=== PATIENT | female | born 1990 | race Caucasian/White ===

== ENCOUNTER 2019-01-22 17:13 | Inpatient (IN) ==
[2019-01-22] MEDS ORDERED: ONDANSETRON 4 MG/2 ML VIAL IV PRN (17:49)
[2019-01-22] MEDS ORDERED: BUTORPHANOL 1 MG/ML VIAL IV PRN (17:49)
[2019-01-22] MEDS ORDERED: BUTORPHANOL 2 MG/ML VIAL IV PRN (17:49)
[2019-01-22 18:13] LABS: Basophils % 0.3 % (0.0-0.8); Eosinophils # 0.1 10*3/uL (0.0-0.87); Eosinophils % 0.7 % (0.00-10.9); Hematocrit 29.9 VOL% (35.7-47.0); Hemoglobin 8.8 GM/DL (12.0-16.0); Immature Granulocytes Absolute 0.12 #; Lymphocytes # 3.4 10*3/uL (1.4-4.0); Lymphocytes % 26.7 % (21.3-54.2); Mean Corpuscular HGB Conc 29.4 GM/DL (32-36); Mean Corpuscular Volume 78.9 FL (87-102); Mean Platelet Volume 9.8 FL (9.6-12.0); Monocytes % 6.5 % (1.7-12.7); NRBC # 0.07 10*3/uL; Neutrophils % 64.8 % (38.7-73.9); Platelet Count 270 T/CUMM (130-400); Red Blood Count 3.79 MC/CUMM (3.8-5.5); Red Cell Distribution Width 15.5 % (9.3-17.3); White Blood Count 12.6 T/CUMM (4-12)
[2019-01-22] MEDS: LACTATED RINGERS 1,000 ML IV SCH (18:23)
[2019-01-22 18:30] LABS: Albumin 2.5 G/DL (3.4-5.0); Bilirubin,Total 0.5 MG/DL (0.2-1.0); Calcium 8.4 MG/DL (8.5-10.1); Osmolality,Calculated 272.7 MOS/KG (273-304); Total Protein 6.8 G/DL (6.4-8.3); Uric Acid 4.2 MG/DL (2.6-6.0)
[2019-01-22] MEDS ORDERED: PROMETHAZINE 25 MG/1 ML VIAL IM ONE (19:16)
[2019-01-22] MEDS ORDERED: NALOXONE 0.4 MG/ML VIAL IV PRN (19:16)
[2019-01-22] MEDS ORDERED: ONDANSETRON 4 MG/2 ML VIAL IV ONE (19:16)
[2019-01-22] MEDS ORDERED: ePHEDrine 50 MG/ML AMP IV PRN (19:16)
[2019-01-22] MEDS ORDERED: hydrOXYzine HCL 25 MG/1 ML VIAL IM PRN (19:16)
[2019-01-22] MEDS ORDERED: diphenhydrAMINE 50 MG/1 ML VIAL IV PRN ×2 (19:16)
[2019-01-22] MEDS ORDERED: FAMOTIDINE 20 MG/2 ML VIAL IV ONE (19:21)
[2019-01-22] MEDS ORDERED: CITRIC ACID/SODIUM CITRATE 30 ML UDCUP PO ONE (19:21)
[2019-01-22] MEDS ORDERED: OXYTOCIN/LR 20 UNIT/1,000 ML BAG IV ONE (19:29)
[2019-01-22] MEDS ORDERED: TRANEXAMIC ACID 1,000 MG/10 ML VIAL ONE (19:29)
[2019-01-22] MEDS ORDERED: miSOPROStoL 200 MCG TABLET ONE (19:29)
[2019-01-22] MEDS ORDERED: CARBOPROST TROMETHAMINE 250 MCG/ML AMP IM ONE (19:30)
[2019-01-22] MEDS ORDERED: METHYLERGONOVINE 0.2 MG/1 ML AMP ONE (19:30)
[2019-01-22] MEDS ORDERED: LACTATED RINGERS 1,000 ML IV SCH (19:30)
[2019-01-22] MEDS ORDERED: fentaNYL 2 MCG/ROPIV 0.2% EPID 100 ML EPIDURAL SCH (19:30)
[2019-01-23] MEDS: LACTATED RINGERS 1,000 ML IV SCH ×2 (01:27→11:18)
[2019-01-23] MEDS ORDERED: OXYTOCIN/LR 20 UNIT/1,000 ML BAG IV SCH (04:30)
[2019-01-23] MEDS: MEPERIDINE 50 MG/1 ML VIAL IV PRN ×2 (04:39→08:44)
[2019-01-23 04:51] LABS: Apearance,Urine Slightly Hazy (Clear); Bilirubin,Urine Negative (Negative); Blood, Urine Negative (Negative); Glucose,Urine (UA) Negative (Negative); Ketones,Urine 80 mg/dL (Negative); Mucus,Urine Many /LPF (Occasional); Nitrite,Urine Negative (Negative); Protein,Urine 30 MG/DL; RBC,Urine 1 /HPF (0-4); Squamous Epithelial Cell,Urine Occasional /HPF (0-10); Urine Color Dark yellow (Yellow); Urine Specific Gravity 1.024 (1.001-1.035); WBC,Urine 4 /HPF (0-6)
[2019-01-23] MEDS ORDERED: miSOPROStoL 200 MCG TABLET ONE (09:40)
[2019-01-23] MEDS ORDERED: OXYTOCIN/LR 20 UNIT/1,000 ML BAG IV ONE ×2 (09:40→10:21)
[2019-01-23] MEDS ORDERED: TRANEXAMIC ACID 1,000 MG/10 ML VIAL ONE (09:40)
[2019-01-23] MEDS ORDERED: CARBOPROST TROMETHAMINE 250 MCG/ML AMP IM ONE (09:41)
[2019-01-23] MEDS ORDERED: LIDOCAINE 1% 50 ML VIAL ONE (09:41)
[2019-01-23] MEDS ORDERED: METHYLERGONOVINE 0.2 MG/1 ML AMP ONE (09:41)
[2019-01-23] MEDS ORDERED: DIPH/TET/ACEL PERT BOOSTER VACCINE 0.5 ML VIAL IM ONE (10:21)
[2019-01-23] MEDS ORDERED: HYDROCORTISONE 2.5% RECTAL CREAM 30 GM TUBE TOP PRN (10:21)
[2019-01-23] MEDS ORDERED: BISACODYL 10 MG SUPP RECTAL PRN (10:21)
[2019-01-23] MEDS ORDERED: RHO(D) IMMUNE GLOBULIN 300 MCG SYRINGE IM ONE (10:21)
[2019-01-23] MEDS ORDERED: LANOLIN 50% CREAM 0.3 OZ TUBE TOP PRN (10:21)
[2019-01-23] MEDS ORDERED: ONDANSETRON 4 MG/2 ML VIAL IV PRN (10:21)
[2019-01-23] MEDS ORDERED: ACETAMINOPHEN 325 MG TABLET PO PRN (10:21)
[2019-01-23] MEDS ORDERED: oxyCODONE/ACETAMINOPHEN 5-325 MG TABLET PO PRN (10:21)
[2019-01-23] MEDS ORDERED: WITCH HAZEL PADS 100/JAR TOP PRN (10:21)
[2019-01-23] MEDS ORDERED: MEASLES/MUMPS/RUBELLA VACCINE 0.5 ML VIAL SUBCUT ONE (10:21)
[2019-01-23] MEDS ORDERED: BENZOCAINE 20%/MENTHOL 0.5% SPRAY 56 GM CAN TOP PRN (10:21)
[2019-01-23 10:32] LABS: Cord Venous Blood HCO3 20.7 MMOL/L; Cord Venous Blood PCO2 48.6 MMHG; Cord Venous Blood PO2 22.5
[2019-01-23] MEDS: IBUPROFEN 800 MG TABLET PO PRN (11:07)
[2019-01-23] MEDS: oxyCODONE/ACETAMINOPHEN 5-325 MG TABLET PO PRN (13:29)
[2019-01-23] MEDS ORDERED: OXYTOCIN/LR 30 UNIT/1,000 ML BAG IV ONE (14:35)
[2019-01-23 16:25] LABS: Hematocrit 22.5 VOL% (35.7-47.0); Hemoglobin 6.8 GM/DL (12.0-16.0)
[2019-01-23] MEDS ORDERED: SODIUM CHLORIDE 0.9% 1,000 ML IV PRN (16:36)
[2019-01-23] MEDS ORDERED: FUROSEMIDE 40 MG/4 ML VIAL IV PRN (18:22)
[2019-01-23] MEDS: DOCUSATE SODIUM 100 MG CAPSULE PO SCH (21:46)
[2019-01-24] MEDS: oxyCODONE/ACETAMINOPHEN 5-325 MG TABLET PO PRN (06:38)
[2019-01-24 07:14] LABS: Basophils # 0.1 10*3/uL (0.0-0.2); Basophils % 0.5 % (0.0-0.8); Eosinophils # 0.1 10*3/uL (0.0-0.87); Eosinophils % 0.8 % (0.00-10.9); Hematocrit 28.6 VOL% (35.7-47.0); Hemoglobin 8.9 GM/DL (12.0-16.0); Immature Granulocytes % 1.1 %; Immature Granulocytes Absolute 0.15 #; Lymphocytes # 3.7 10*3/uL (1.4-4.0); Lymphocytes % 26.6 % (21.3-54.2); Mean Corpuscular HGB Conc 31.1 GM/DL (32-36); Mean Platelet Volume 10.3 FL (9.6-12.0); Monocytes % 7.7 % (1.7-12.7); NRBC # 0.05 10*3/uL; Neutrophils % 63.3 % (38.7-73.9); Platelet Count 223 T/CUMM (130-400); Red Blood Count 3.53 MC/CUMM (3.8-5.5); Red Cell Distribution Width 16.8 % (9.3-17.3)
[2019-01-24] MEDS: DOCUSATE SODIUM 100 MG CAPSULE PO SCH ×2 (08:46→20:42)
[2019-01-24] MEDS: IBUPROFEN 800 MG TABLET PO PRN (17:47)
[2019-01-25] MEDS ORDERED: FERROUS SULFATE 325 MG TABLET PO SCH (09:00)
[2019-01-25] MEDS: DOCUSATE SODIUM 100 MG CAPSULE PO SCH (10:20)
[2019-01-25 13:00] VITALS: BP 123/75
[2019-01-25] MEDS ORDERED: ONDANSETRON 4 MG TABLET PO PRN (13:53)
== END 2019-01-25 15:30 | disposition home or self-care (01) | DRG 560 ==
LOC: N.LDOUT 17:13 → N.LD 17:15 → N.OB 01-24 20:10
PROVIDERS: ADMIT Obstetrics & Gynecology; ATTEND Obstetrics & Gynecology